=== PATIENT | male | born 1970 | race Caucasian/White ===

== ENCOUNTER 2017-02-10 08:04 | Emergency (ER) | payer SELFPAY ==
[~2017-02-10] VITALS: Ht 165.1 cm; Wt 82.0 kg
[2017-02-10 08:46] LABS: HEMATOCRIT. 37.8 % (42.0-52.0); HEMOGLOBIN. 12.8 g/dL (14.0-18.0); MEAN CORPUSCULAR HEMOGLOBIN 31.7 pg (28.0-32.0); MEAN CORPUSCULAR VOLUME 93.4 fL (80.0-94.0); MEAN PLATELET VOLUME 6.1 fl (7.4-10.4); PLATELET 85 x1000/uL (130-400); RED BLOOD CELL COUNT 4.05 mill/uL (4.7-6.1); RED CELL DISTRIBUTION WIDTH 16.4 % (11.6-14.6)
[2017-02-10 08:50] LABS: INR 1.2; PARTIAL THROMBOPLASTIN TIME 29.7 sec (23.4-31.0)
[2017-02-10 10:32] LABS: PLATELET ESTIMATE SLIGHTLY DECREASED
[2017-02-10 10:58] VITALS: BP 106/49
== END 2017-02-10 11:03 | disposition home or self-care (01) ==
LOC: ER 09:28
DX: R18.8 Other ascites (principal)
CPT/HCPCS: 36415; 85025; 85610; 85730; 99284; Z7610

== ENCOUNTER 2017-05-05 11:35 | Emergency (ER) | payer SELFPAY ==
[~2017-05-05] VITALS: Ht 165.1 cm; Wt 77.0 kg
[2017-05-05 14:24] LABS: CLARITY URINE CLEAR (CLEAR); COLOR URINE YELLOW (YELLOW); KETONES URINE NEGATIVE (NEGATIVE); LEUKOCYTE ESTERASE URINE NEGATIVE (NEGATIVE); NITRITE URINE NEGATIVE (NEGATIVE); OCCULT BLOOD URINE NEGATIVE (NEGATIVE); PH URINE 6.5 (4.5-8.0); PROTEIN URINE NEGATIVE (NEGATIVE); SPECIFIC GRAVITY URINE 1.008 (1.005-1.030); UROBILINOGEN URINE 0.2 E.U./dL (0.2-1.0)
[2017-05-05 16:12] LABS: BASOPHILS % 0.7 % (0.0-2.0); EOSINOPHILS % 3.8 % (0.0-5.0); HEMATOCRIT. 35.8 % (42.0-52.0); HEMOGLOBIN. 12.4 g/dL (14.0-18.0); LYMPHOCYTES % 24.2 % (20.0-50.0); MEAN CORPUSCULAR HEMOGLOBIN 31.5 pg (28.0-32.0); MEAN CORPUSCULAR VOLUME 91.1 fL (80.0-94.0); MEAN PLATELET VOLUME 6.6 fl (7.4-10.4); MONOCYTES % 11.4 % (2.0-8.0); NEUTROPHILS % 59.9 % (40.0-76.0); PLATELET 89 x1000/uL (130-400); RED BLOOD CELL COUNT 3.93 mill/uL (4.7-6.1); RED CELL DISTRIBUTION WIDTH 17.4 % (11.6-14.6)
[2017-05-05 16:15] LABS: INR 1.1; PARTIAL THROMBOPLASTIN TIME 30.6 sec (23.4-31.0); PROTHROMBIN TIME 11.4 sec (9.4-11.6)
[2017-05-05 16:18] LABS: CHLORIDE 105 mEq/L (98-107)
[2017-05-05] MEDS ORDERED: LIDOCAINE HCL 1% 20ML VIAL (Pyxis) INJ ONE (17:15)
[2017-05-05] MEDS ORDERED: SODIUM BICARBONATE 4% (2.4MEQ) 5ML VIAL IV ONE (17:17)
[2017-05-05 21:08] VITALS: BP 123/81
== END 2017-05-05 21:11 | disposition home or self-care (01) ==
LOC: ER 13:07
DX: R18.8 Other ascites (principal); K42.9 Umbilical hernia without obstruction or gangrene; K74.60 Unspecified cirrhosis of liver
CPT/HCPCS: 36415; 49083; 80053; 81003; 85025; 85610; 85730; 87070; 87205; 88108; 88312; 89050; 99285; J3490; Z7610

== ENCOUNTER 2017-05-25 12:01 | Emergency (ER) | payer SELFPAY ==
[~2017-05-25] VITALS: Ht 165.1 cm; Wt 82.0 kg
[2017-05-25 12:31] LABS: HEMATOCRIT. 37.7 % (42.0-52.0); HEMOGLOBIN. 12.7 g/dL (14.0-18.0); MEAN CORPUSCULAR HEMOGLOBIN 31.2 pg (28.0-32.0); MEAN CORPUSCULAR VOLUME 92.8 fL (80.0-94.0); MEAN PLATELET VOLUME 6.1 fl (7.4-10.4); PLATELET 114 x1000/uL (130-400); RED BLOOD CELL COUNT 4.06 mill/uL (4.7-6.1); RED CELL DISTRIBUTION WIDTH 16.9 % (11.6-14.6)
[2017-05-25 12:38] LABS: CHLORIDE 104 mEq/L (98-107)
[2017-05-25 12:46] LABS: INR 1.1; PROTHROMBIN TIME 11.4 sec (9.4-11.6)
[2017-05-25 12:47] LABS: PLATELET ESTIMATE SLIGHTLY DECREASED
[2017-05-25] MEDS ORDERED: SODIUM BICARBONATE 4% (2.4MEQ) 5ML VIAL IV ONE (13:30)
[2017-05-25] MEDS ORDERED: LIDOCAINE HCL/PF 1% 10 MG/ML 5ML VIAL ONE (13:30)
[2017-05-25 18:52] VITALS: BP 128/78
== END 2017-05-25 19:07 | disposition home or self-care (01) ==
LOC: ER 13:30
DX: K70.31 Alcoholic cirrhosis of liver with ascites (principal); E88.09 Other disorders of plasma-protein metabolism, not elsewhere classified; D64.9 Anemia, unspecified; D72.819 Decreased white blood cell count, unspecified; D69.6 Thrombocytopenia, unspecified; R06.02 Shortness of breath
CPT/HCPCS: 36415; 49083; 80053; 83690; 83880; 84484; 85025; 85610; 99285; J3490; Z7610

== ENCOUNTER 2017-06-10 13:29 | Inpatient (IN) | payer SELFPAY ==
[~2017-06-10] VITALS: Ht 165.1 cm; Wt 81.8 kg
[2017-06-10] MEDS ORDERED: MORPHINE SULFATE 4 MG/ML CPJ (NOT FOR IM USE) IV STA (14:46)
[2017-06-10] MEDS ORDERED: FAMOTIDINE 20MG/2ML VIAL IV STA (14:46)
[2017-06-10] MEDS ORDERED: ONDANSETRON HCL 4MG/2ML VIAL IV STA (14:46)
[2017-06-10 15:36] LABS: CHLORIDE 100 mEq/L (98-107)
[2017-06-10 15:38] LABS: INR 1.1; PROTHROMBIN TIME 11.4 sec (9.4-11.6)
[2017-06-10 15:42] LABS: CLARITY URINE CLEAR (CLEAR); COLOR URINE YELLOW (YELLOW); KETONES URINE NEGATIVE (NEGATIVE); LEUKOCYTE ESTERASE URINE NEGATIVE (NEGATIVE); NITRITE URINE NEGATIVE (NEGATIVE); OCCULT BLOOD URINE TRACE (NEGATIVE); PH URINE 6.5 (4.5-8.0); PROTEIN URINE NEGATIVE (NEGATIVE); SPECIFIC GRAVITY URINE 1.007 (1.005-1.030); UROBILINOGEN URINE 0.2 E.U./dL (0.2-1.0)
[2017-06-10 15:42] LABS: EOSINOPHILS % 1.8 % (0.0-5.0); HEMATOCRIT. 35.8 % (42.0-52.0); HEMOGLOBIN. 12.4 g/dL (14.0-18.0); LYMPHOCYTES % 20.9 % (20.0-50.0); MEAN CORPUSCULAR VOLUME 92.4 fL (80.0-94.0); MEAN PLATELET VOLUME 6.5 fl (7.4-10.4); MONOCYTES % 9.3 % (2.0-8.0); PLATELET 78 x1000/uL (130-400); RED BLOOD CELL COUNT 3.88 mill/uL (4.7-6.1); RED CELL DISTRIBUTION WIDTH 16.4 % (11.6-14.6)
[2017-06-10 15:53] LABS: ETHANOL BLOOD 328 mg/dL
[2017-06-10] MEDS ORDERED: FUROSEMIDE 20MG/2ML VIAL IVP ONE (17:15)
[2017-06-10] MEDS ORDERED: IPRATROPIUM/ALBUTEROL 0.5-3(2.5)MG/3ML NEB INH PRN (17:30)
[2017-06-10] MEDS ORDERED: MAGNESIUM/ALUMINUM HYDROXIDE/SIMETHICONE 30ML UDC PO PRN (17:30)
[2017-06-10] MEDS ORDERED: DIPHENHYDRAMINE 50MG/ML VIAL IV PRN (17:30)
[2017-06-10] MEDS ORDERED: ONDANSETRON HCL 4MG/2ML VIAL IV PRN (17:30)
[2017-06-10] MEDS ORDERED: LORAZEPAM 2MG/ML CPJ IV PRN (17:45)
[2017-06-10] MEDS ORDERED: MAGNESIUM 2 G PREMIX 50 ML IV PRN (19:00)
[2017-06-10 22:10] VITALS: BP 122/84
[2017-06-10 22:12] VITALS: BP 122/84
[2017-06-10] MEDS ORDERED: THIAMINE HCL 100 MG in SODIUM CHLORIDE 0.9% 49 ML IV NR (23:30)
[2017-06-10] MEDS: SODIUM CHLORIDE 0.9% INJ 3ML FLUSH IVF SCH (23:41)
[2017-06-11 04:00] VITALS: BP 110/73
[2017-06-11] MEDS: SODIUM CHLORIDE 0.9% INJ 3ML FLUSH IVF SCH ×3 (06:24→22:01)
[2017-06-11 08:00] VITALS: BP 127/64
[2017-06-11] MEDS: FUROSEMIDE 40MG TABLET PO SCH (08:34)
[2017-06-11] MEDS: SPIRONOLACTONE 50MG TABLET PO SCH (08:34)
[2017-06-11] MEDS: POTASSIUM CHLORIDE 8 MEQ TABLET.SA PO SCH (08:35)
[2017-06-11] MEDS ORDERED: LIDOCAINE HCL/PF 1% 10 MG/ML 5ML VIAL ONE (09:48)
[2017-06-11] MEDS ORDERED: SODIUM BICARBONATE 4% (2.4MEQ) 5ML VIAL IV ONE (09:48)
[2017-06-11 12:00] VITALS: BP 125/77
[2017-06-11 16:00] VITALS: BP 136/90
[2017-06-11 20:00] VITALS: BP 152/83
[2017-06-11] MEDS: CHLORDIAZEPOXIDE 25MG CAPSULE PO SCH (22:01)
[2017-06-11] MEDS: PROPRANOLOL HCL 10MG TABLET PO SCH (22:01)
[2017-06-11] MEDS: ACETAMINOPHEN 325MG TABLET PO PRN (22:01)
[2017-06-11] MEDS ORDERED: LORAZEPAM 2MG/ML CPJ IV PRN (23:45)
[2017-06-12] VITALS: BP 110/58
[2017-06-12 04:00] VITALS: BP 106/76
[2017-06-12] MEDS: CHLORDIAZEPOXIDE 25MG CAPSULE PO SCH ×2 (05:38→14:47)
[2017-06-12] MEDS: ACETAMINOPHEN 325MG TABLET PO PRN (05:38)
[2017-06-12] MEDS: SODIUM CHLORIDE 0.9% INJ 3ML FLUSH IVF SCH ×2 (05:38→14:47)
[2017-06-12 05:58] LABS: HEMATOCRIT. 38.8 % (42.0-52.0); HEMOGLOBIN. 13.1 g/dL (14.0-18.0); MEAN CORPUSCULAR HEMOGLOBIN 31.4 pg (28.0-32.0); MEAN CORPUSCULAR VOLUME 93.3 fL (80.0-94.0); MEAN PLATELET VOLUME 6.9 fl (7.4-10.4); PLATELET 76 x1000/uL (130-400); RED BLOOD CELL COUNT 4.16 mill/uL (4.7-6.1); RED CELL DISTRIBUTION WIDTH 15.8 % (11.6-14.6)
[2017-06-12 07:20] LABS: CHLORIDE 95 mEq/L (98-107)
[2017-06-12 07:33] LABS: PHOSPHORUS 3.1 mg/dL (2.5-4.9)
[2017-06-12 08:00] VITALS: BP 107/73
[2017-06-12] MEDS ORDERED: THIAMINE HCL 100MG TABLET PO SCH (09:00)
[2017-06-12] MEDS ORDERED: MULTIVITAMINS,THER W-MINERALS TABLET PO SCH (09:00)
[2017-06-12] MEDS: PROPRANOLOL HCL 10MG TABLET PO SCH (09:00)
[2017-06-12] MEDS: SPIRONOLACTONE 50MG TABLET PO SCH (09:00)
[2017-06-12] MEDS: FUROSEMIDE 40MG TABLET PO SCH (09:43)
[2017-06-12] MEDS: POTASSIUM CHLORIDE 8 MEQ TABLET.SA PO SCH (09:44)
[2017-06-12 11:42] LABS: NUCLEATED RED BLOOD CELLS 1 /100 WBC; PLATELET ESTIMATE SLIGHTLY DECREASED
[2017-06-12 12:00] VITALS: BP 112/62
[2017-06-12 16:00] VITALS: BP 130/70
[2017-06-12 16:56] VITALS: BP 130/70
== END 2017-06-12 17:50 | disposition home or self-care (01) | DRG 280 ==
LOC: ER 13:29 → 7WST 17:15 → EDBEDREQTM 17:18 → EDBEDREQ 17:18 → ENRESERV 19:48
PROVIDERS: ADMIT Internal Medicine; ATTEND Internal Medicine
PROC: 0W9G3ZZ Drainage of Peritoneal Cavity, Percutaneous Approach (ICD-10-PCS; principal; 2017-06-11)
DX: K70.31 Alcoholic cirrhosis of liver with ascites (principal); E43 Unspecified severe protein-calorie malnutrition; G92 Toxic encephalopathy; D69.6 Thrombocytopenia, unspecified; F10.239 Alcohol dependence with withdrawal, unspecified; Z59.0 Homelessness; Z91.19 Patient's noncompliance with other medical treatment and regimen; Z68.30 Body mass index [BMI] 30.0-30.9, adult
CPT/HCPCS: 36415; 49083; 71045; 80053; 81003; 83605; 83690; 83735; 83880; 84100; 84484; 85025; 85610; 85730; 93005; 93970; 96374; 99285; G0482; J1940; J2270; J2405; J3411; J3475; J3490; J7050

== ENCOUNTER 2019-08-26 13:21 | Emergency (ER) | payer SELFPAY ==
[~2019-08-26] VITALS: Ht 162.6 cm; Wt 82.0 kg
[2019-08-26] MEDS ORDERED: IBUPROFEN 600MG TABLET PO ONE (14:45)
[2019-08-26] MEDS ORDERED: CLINDAMYCIN HCL 150MG CAPSULE PO ONE (14:45)
[2019-08-26 14:57] VITALS: BP 136/78
[2019-08-26 15:08] LABS: HEMATOCRIT. 35.7 % (42.0-52.0); HEMOGLOBIN. 12.6 g/dL (14.0-18.0); MEAN CORPUSCULAR HEMOGLOBIN 35.1 pg (28.0-32.0); MEAN CORPUSCULAR VOLUME 99.6 fL (80.0-94.0); MEAN PLATELET VOLUME 6.3 fl (7.4-10.4); PLATELET 122 x1000/uL (130-400); RED BLOOD CELL COUNT 3.58 mill/uL (4.7-6.1); RED CELL DISTRIBUTION WIDTH 13.7 % (11.6-14.6)
[2019-08-26 15:15] LABS: CHLORIDE 95 mEq/L (98-107)
[2019-08-26 15:21] LABS: ETHANOL BLOOD 224 mg/dL
[2019-08-26 15:26] LABS: CREATINE KINASE 235 IU/L (39-308)
[2019-08-26 15:35] LABS: PLATELET ESTIMATE SLIGHTLY DECREASED
[2019-08-26 16:27] LABS: CLARITY URINE CLEAR (CLEAR); COLOR URINE DARK YELLOW (YELLOW); KETONES URINE TRACE (NEGATIVE); LEUKOCYTE ESTERASE URINE NEGATIVE (NEGATIVE); NITRITE URINE NEGATIVE (NEGATIVE); OCCULT BLOOD URINE TRACE (NEGATIVE); PH URINE 5.5 (4.5-8.0); PROTEIN URINE 3+ (NEGATIVE); SPECIFIC GRAVITY URINE 1.016 (1.005-1.030)
[2019-08-26 16:40] LABS: *AMPHETAMINES SCREEN URINE NEGATIVE (NEGATIVE); *BARBITURATES SCREEN URINE NEGATIVE (NEGATIVE); *BENZODIAZEPINES SCREEN URINE NEGATIVE (NEGATIVE); *COCAINE SCREEN URINE NEGATIVE (NEGATIVE); METHADONE URINE SCREEN NEGATIVE (NEGATIVE); OPIATES URINE SCREEN NEGATIVE (NEGATIVE)
[2019-08-26 16:41] LABS: CANNABINOID URINE SCREEN NEGATIVE (NEGATIVE); PHENCYCLIDINE URINE SCREEN NEGATIVE (NEGATIVE)
== END 2019-08-26 18:21 | disposition home or self-care (01) ==
LOC: ER 13:21
DX: L03.116 Cellulitis of left lower limb (principal); F10.129 Alcohol abuse with intoxication, unspecified; K76.9 Liver disease, unspecified; Z59.0 Homelessness; Y90.8 Blood alcohol level of 240 mg/100 ml or more
CPT/HCPCS: 36415; 73630; 80053; 80305; 80320; 81003; 82550; 83880; 85025; 99284; G0480

== ENCOUNTER 2021-09-04 12:19 | Emergency (ER) | payer SELFPAY ==
[~2021-09-04] VITALS: Ht 162.6 cm; Wt 73.0 kg
[2021-09-04] MEDS ORDERED: ACETAMINOPHEN 325MG TABLET PO ONE (12:45)
[2021-09-04] MEDS ORDERED: TETANUS, DIPHTHERIA, PERTUSSIS VAC/PF 0.5ML (>10YR OLD) IM ONE (12:45)
[2021-09-04] MEDS ORDERED: CEPHALEXIN 250MG CAPSULE PO ONE (13:15)
[2021-09-04] MEDS ORDERED: POLY1BAN TP (13:37)
[2021-09-04] MEDS ORDERED: CEPH500C2 MT (13:37)
[2021-09-04] MEDS ORDERED: BO1 TP (13:37)
[2021-09-04] MEDS ORDERED: PETR1BAN35 TP (13:37)
[2021-09-04 13:54] VITALS: BP 149/97
== END 2021-09-04 14:14 | disposition home or self-care (01) ==
LOC: ER 13:06
DX: M79.674 Pain in right toe(s) (principal)
CPT/HCPCS: 90471; 90715; 99283; Z7610